=== PATIENT | female | born 1985 | race Caucasian/White ===

== ENCOUNTER 2024-03-16 11:38 | Emergency (ER) | payer BC, SELFPAY ==
--- NOTE | ~2024-03-16 | XR_ITS ---
XR shoulder RT min 2V Ordering provider: Anusha Higgins PA-C History: . injury, right shoulder pain . Comparison: None. FINDINGS: BONES: No acute fracture or dislocation. JOINT SPACES: The acromioclavicular joint is normal. The glenohumeral joint is normal. SOFT TISSUES: Normal. IMPRESSION: No acute osseous abnormality right shoulder. Reviewed, dictated and finalized at location A. IRATORY TECHNICIAN
[2024-03-16 11:55] VITALS: BP 140/91; PULSE 99; RESP 16; TEMP 36.4; O2SAT 96
[2024-03-16] MEDS: methocarbamoL 750 MG TABLET PO (13:04)
[2024-03-16] MEDS: HYDROmorphone HCL INJ (*CRX) 1 MG/ML SYR IM (13:04)
[2024-03-16 14:02] VITALS: BP 139/87; PULSE 100; RESP 14; O2SAT 98
--- NOTE | 2024-03-16 21:24 | ED_ITS ---
HPI - Extremity Injury (Upper) General Chief Complaint: Extremity Injury, Upper Stated Complaint: R shoulder injury Time Seen by Provider: 03/16/24 12:14 History of Present Illness HPI narrative: 38-year-old otherwise healthy female presenting to the emergency room for evaluation of right shoulder pain. She was shoveling snow last night and felt a pain intervention posterior aspect right shoulder. She has been trying Tylenol, ibuprofen and ice without any relief of her symptoms. Denies any other traumatic injuries. No falls or injuries, car accidents. No history of any rotator cuff injuries or surgeries. She was otherwise in her normal state of health. Denies any other systemic features or concerning symptoms at this time. Related Data Allergies Allergy/AdvReac Type Severity Reaction Status Date / Time No Known Allergies Allergy Verified 03/16/24 12:58 Review of Systems Review of Systems: As reviewed above in HPI [facility] Family History Family History Father Family history of diabetes mellitus in first degree relative Social History Social History Smoking status: Never smoker Second hand tobacco smoke exposure: No Alcohol intake: never Substance use: never Substance use type: does not use Exam Narrative: GENERAL: [Well-appearing, well-nourished, and in no acute distress.] HEAD: [Normocephalic, atraumatic.] EYES: [PERRLA and EOMI.] ENT: Nares clear, no rhinorrhea or epistaxis. Mucous membranes moist. NECK: Supple. CHEST: [Clear to auscultation. No respiratory distress.] HEART: [Regular rate and rhythm]. No murmur heard. [Normal peripheral pulses.] ABDOMEN: [Soft, nondistended], [nontender], [No rigidity or guarding] EXTREMITIES: Normal range of motion. [No edema.] She has focal tenderness to palpation of the posterior lateral aspect of the right scapular region, positive Neer's and Monge testing, full range of motion of the shoulder, elbow and wrist joint. No focal deformity. No scapular step-offs. No cervical thoracic or lumbar spinal step-offs deformities. SKIN: Warm, dry, no rash. NEURO: [No focal deficits]. Alert and oriented [x3.] PSYCH: [Normal mood and affect.] Course Vital Signs Vital signs: Vital Signs Temperature 36.4 C 03/16/24 11:55 Pulse Rate 99 03/16/24 11:55 Respiratory Rate 16 03/16/24 11:55 Blood Pressure 140/91 H 03/16/24 11:55 Pulse Oximetry 96 03/16/24 11:55 Oxygen Delivery Room Air 03/16/24 11:55 Temperature 36.4 C 03/16/24 11:55 Pulse Rate 100 03/16/24 14:02 Respiratory Rate 14 03/16/24 14:02 Blood Pressure 139/87 03/16/24 14:02 Pulse Oximetry 98 03/16/24 14:02 Oxygen Delivery Room Air 03/16/24 11:55 MDM - Extremity Injury (Upper) MDM Narrative Medical decision making narrative: 38-year-old female presenting for right shoulder pain after injuring herself while shoveling snow yesterday. She states she does not have any falls or trauma but states that she was shoveling for quite some time and had pain in her right shoulder posterior scapular region. It started after the fact. She has tried traditional conservative therapies including Tylenol, ibuprofen, rest, ice and heat and had no symptomatic relief. She does appear uncomfortable but not any acute distress. She has normal vital signs. Strong symmetric pulses throughout both arms, focal tenderness over the posterolateral aspect of the scapular near the rotator cuff. Positive Neer's and Monge testing. She is able to abduct and has full range of motion of the elbow and shoulder joint. Suspicion for impingement is low, suspicion for rotator cuff strain is high and unlikely to be an osseous process. A shoulder x-ray was obtained she was provide treatment with pain control medications including hydromorphone Robaxin. Patient was provided a sling for comfort and x-ray shows no acute osseous process. She was stable for discharge home at this time with return precautions and [id number] medications. Medical Records Attestation: I reviewed the patient's medical records. Lab Data Attestation: I reviewed the patient's lab results. Imaging Data Attestation: I personally reviewed and interpreted this imaging study as fol lows: My impression: Impressions Shoulder X-Ray 03/16/24 12:17 IMPRESSION: No acute osseous abnormality right shoulder. Discharge Plan Discharge Clinical Impression: Shoulder sprain, Rotator cuff (capsule) sprain Patient Disposition: Home, Self-Care Condition: Stable Instructions: Antibiotic Form, Rotator Cuff Injury (ED), How to Use a Sling (ED), Rotator Cuff Injury Exercises (DC) Patient Language: Latvian Prescriptions: New methocarbamol 750 mg tablet 750 mg PO TID PRN (Reason: pain) Qty: 20 0RF ketorolac 10 mg tablet 10 mg PO Q8H PRN (Reason: pain) 5 Days Qty: 20 0RF Rx Instructions: maximum total duration of 5 days from all oral, intranasal, or parenteral formulations Follow-up/Referrals: Christy Donato MD [Primary Care Provider] - Time of Disposition: 12:56
== END 2024-03-16 14:02 | disposition home or self-care (01) ==
PROVIDERS: Emergency Provider Student in an Organized Health Care Education/Training Program; PCP Family Medicine
DX: S43.421A Sprain of right rotator cuff capsule, initial encounter (principal); X50.3XXA Overexertion from repetitive movements, initial encounter; X50.0XXA Overexertion from strenuous movement or load, initial encounter; Y93.H1 Activity, digging, shoveling and raking
CPT/HCPCS: 73030; 96372; 99283; A4565; A9270; J1171

== ENCOUNTER 2024-03-23 06:59 | Outpatient (CLI) | payer BC, SELFPAY ==
--- NOTE | ~2024-03-23 | XR_ITS ---
XR chest 2V Ordering provider: Christy Donato MD History: 38 years Female with . J18.9 - Pneumonia, unspecified organism; f/u . Comparison: None. FINDINGS: MEDIASTINUM: The cardiac silhouette is not enlarged. LUNGS: No effusions or pneumothorax. Opacification in the left lung base is seen suggestive of atelec tasis versus pneumonia. OTHER: No free air under the diaphragm. IMPRESSION: Left basilar atelectasis versus pneumonia. Reviewed, dictated and finalized at location A. CE CLERK
== END 2024-03-23 07:00 | disposition home or self-care (01) ==
PROVIDERS: PCP Family Medicine; Visit Provider Family Medicine
DX: J18.9 Pneumonia, unspecified organism (principal)
CPT/HCPCS: 71046

== ENCOUNTER 2024-06-24 07:45 | Outpatient (CLI) | payer BC, SELFPAY ==
--- NOTE | ~2024-06-24 | MR_ITS ---
MRI of the cervical spine Clinical History: Radiculopathy Technique: Axial T2-weighted and gradient images, and sagittal T1-weighted, T2-weighted, and STIR julia ges were acquired. Findings: There is no fracture or subluxation of the cervical spine. There is mild straightening of t he cervical lordosis. Vertebral bodies otherwise maintain normal height and alignment. No bone marrow signal abnormality seen. No significant disc bulge or herniation identified. No spinal canal stenosis or cord compression seen in the cervical spine. There are mild facet joint degenerative changes. Probable minimal right neura l foraminal narrowing at C3-C4. Remaining neural foramina appear preserved. No abnormal signal seen in the spinal cord. Paravertebral soft tissues are unremarkable. Impression: Minimal degenerative change, as above. Reviewed, dictated and finalized at location . Impression: Minimal degenerative change, as above.
== END 2024-06-24 07:46 | disposition home or self-care (01) ==
LOC: MICIMG 07:49
PROVIDERS: PCP Family Medicine; Visit Provider Family Medicine
DX: M54.12 Radiculopathy, cervical region (principal)
CPT/HCPCS: 72141